=== PATIENT | female | born 1960 | race Caucasian/White ===

== ENCOUNTER 2019-06-11 11:57 | Emergency (ER) | payer OTHER ==
[2019-06-11 12:02] VITALS: BMI 27.3
--- NOTE | 2019-06-11 12:10 | PDOC ---
History of Present Illness - General Chief Complaint: Pain, Acute Stated Complaint: ABD PAIN Time Seen by Provider: 06/11/19 12:06 History Source: Patient Exam Limitations: No Limitations - History of Present Illness Initial Comments: 06/11/19 12:09 Ariadna Hillman is a 59F with no other PMH presenting with abdominal pain and intermittent chest pain. Patient reports 3 days of nausea and vomiting with dizziness. Poor PO intake, nausea, 3x NBNB vomiting today and yesterday, with epigastric abdominal pain that worsens with eating, radiates up from stomach, and is not positional. Denies diarrhea, urinary symptoms, fever/chills. Has never had any abdominal surgeries, still has GB. Denies sick contacts or spoiled food exposure. Says she is dizzy like the world is spinning around her, get dizzy like this intermittently, difficulty walking normally. Denies vision/hearing changes. Has felt this way in the past, usually she drinks a cold Coca Cola and her symptoms go away. Has been taking NyQuil with Tylenol for the last few days. Also has intermittent chest pain and SOB, last occurred last week, lasts for about 2 minutes at a time. Happens when she is sitting or when walking fast. 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 Denies any weakness, numbness/tingling, vision changes, no neck pain or severe PEDRO. NKDA No daily meds No recent alcohol use Past History - Past Medical History Allergies/Adverse Reactions: Allergies Allergy/AdvReac Type Severity Reaction Status Date / Time No Known Allergies Allergy Verified 05/02/13 10:17 Home Medications: Ambulatory Orders Famotidine [Pepcid] 20 mg PO DAILY 14 Days #14 tablet 06/11/19 COPD: No CHF: No GI Disorders: Yes (gastritis) - Immunization History Immunization Up to Date: No - Psycho Social/Smoking Cessation Hx Smoking Status: No Smoking History: Never smoked Have you smoked in the past 12 months: No Number of Cigarettes Smoked Daily: 0 Information on smoking cessation initiated: No Hx Alcohol Use: No Drug/Substance Use Hx: No Review of Systems - Review of Systems Able to Perform ROS?: Yes Constitutional: No: Chills, Fever HEENTM: No: Symptoms Reported Respiratory: No: Cough, Shortness of Breath, SOB with Exertion, SOB at Rest Cardiac (ROS): Yes: Chest Pain. No: Irregular Heart Rate, Lightheadedness, Syncope, Chest Tightness ABD/GI: Yes: Nausea, Poor Appetite, Poor Fluid Intake, Vomiting. No: Diarrhea : No: Symptoms Reported Musculoskeletal: No: Symptoms Reported Integumentary: No: Symptoms Reported Neurological: Yes: Headache, Dizziness. No: Numbness, Seizure, Tingling, Unsteady Gait Endocrine: No: Symptoms Reported Hematologic/Lymphatic: No: Symptoms Reported All Other Systems: Reviewed and Negative *Physical Exam - Vital Signs Last Vital Signs Temp Pulse Resp BP Pulse Ox 98.5 F 60 16 129/72 99 06/11/19 11:59 06/11/19 11:59 06/11/19 11:59 06/11/19 11:59 06/11/19 11:59 - Physical Exam General Appearance: Yes: Nourished, Appropriately Dressed, Obese. No: Apparent Distress HEENT: positive: EOMI, CHRISTAIN, Normal ENT Inspection, Normal Voice, Symmetrical, Pharynx Normal. negative: Scleral Icterus (R), Scleral Icterus (L), Pharyngeal Erythema, Tonsillar Exudate, Tonsillar Erythema, Hearing Decreased Neck: positive: Trachea midline, Normal Thyroid, Supple. negative: Tender, Rigid, Decreased range of motion, Tender lateral, Tender midline Respiratory/Chest: positive: Lungs Clear, Normal Breath Sounds. negative: Chest Tender, Respiratory Distress, Accessory Muscle Use, Crackles, Rales, Rhonchi, Stridor, Wheezing Cardiovascular: positive: Regular Rhythm, Regular Rate. negative: Murmur Gastrointestinal/Abdominal: positive: Normal Bowel Sounds, Tender (epigastric), Soft, Protuberent. negative: Guarding, Rebound, Tenderness Musculoskeletal: positive: Normal Inspection. negative: CVA Tenderness, Vertebral Tenderness Extremity: positive: Normal Capillary Refill, Normal Inspection, Normal Range of Motion, Pelvis Stable. negative: Tender, Pedal Edema, Swelling Integumentary: positive: Normal Color, Dry, Warm Neurologic: positive: plush finisher II-XII NML intact, Fully Oriented, Alert, Normal Mood/ Affect, Normal Response, Motor Strength 5/5, Other (no numbness/tingling, 5/5 motor strength, no CN deficits, finger/nose normal). negative: Sensory Deficit ED Treatment Course - LABORATORY CBC & Chemistry Diagram: 06/11/19 12:46 06/11/19 12:46 Medical Decision Making - Medical Decision Making 06/11/19 14:12 Patient is otherwise healthy and presents with epigastric pain, nausea, vomiting , dizziness poor PO for the last few days. Pain worsens with eating, epigastric pain radiates up throat consistent with GERD. DDx includes GB pathology, gastritis, GERD, pancreatitis, dehydration. Has also been having intermittent chest pain at rest, which is consistent with GERD but cannot rule out unstable angina. A few months ago had a head injury when pots fell on her head and she was knocked out, no neuro deficits, but still concerning given PEDRO and dizziness now, possible ICH. - CMP/CBC for infection/lytes/pancreatitis eval - CP/ECG/CXR for cardiac eval, will 2-trop given age and concerning history - lipase for pancreatitis eval - UA/UC for UTI eval - Pepcid/NS bolus/Reglan/Zofran for PEDRO/nausea relief ECG reveals sinus bradycardia with HR 44, QRS 88, QTc 398, TWI in III, inverted P in V1, no ischemic changes, no prior ECG 06/11/19 14:19 Labs notable for: - CMP WNL - CBC WNL - Coags WNL - trop negative - UA clean 06/11/19 15:[address] head no pathology Getting 2nd trop now. 06/11/19 16:25 2nd trop negative. Discussed results with patient in [place], feels better but still has some mild epigastric pain. Will discharge home with PMD, cards, GI referral. Pepcid script sent to [facility] for [facility]. Discharge - Discharge Information Problems reviewed: Yes Clinical Impression/Diagnosis: Epigastric abdominal pain Nausea & vomiting Qualifiers: Vomiting type: unspecified Vomiting Intractability: non-intractable Qualified Code(s): R11.2 - Nausea with vomiting, unspecified Condition: Stable Disposition: HOME - Admission No - Additional Discharge Information Prescriptions: Famotidine [Pepcid] 20 mg PO DAILY 14 Days #14 tablet - Follow up/Referral Referrals: [facility] [place] [Provider Group] Lazarus Ontiveros MD [Staff Physician] - Alisha Warren MD [Staff Physician] - - Patient Discharge Instructions Patient Printed Discharge Instructions: DI for Vomiting -- Adult Additional Instructions: Today you were evaluated for nausea, vomiting, and abdominal pain. Your labs and urine do not show any problems. Your X-ray and CT scan appear completely normal. We have tested your heart for possible heart attack and did not find evidence of one. Your dizziness is likely related to dehydration or a viral infection. You need to see a primary doctor in the next week for follow-up, and we have given you a referral. We also recommend you see a heart doctor and a supervisor press room for what is likely gastric reflux causing your burning pain. We have sent a prescription for Pepcid for you to take that will help with upset stomach acid. Avoid eating food at night and avoid foods high in fat. If you experience worsening pain, nausea, vomiting, have fever, or any other new or concerning symptoms, please return to the emergency room. Hoy fue evaluado por nuseas, vmitos y dolor abdominal. Princess laboratorios y orina no muestran ningn problema. Oakley radiografa y tomografa computarizada parecen completamente normales. Hemos probado oakley corazn para detectar un posible ataque cardaco y no encontramos evidencia de jose miguel. Oakley mareo probablemente est relacionado con la deshidratacin o samm infeccin viral. Debe consultar a un mdico de atencin primaria en la prxima semana para el seguimiento, y le hemos derivado. David luna recomendamos que consulte a un mdico del corazn y a un gastroenterlogo por lo que probablemente sea el reflujo gstrico que causa oakley ardor. Hemos enviado samm receta de Pepcid para que la tome, lo que ayudar con el malestar estomacal cido. Evite comer alimentos por la noche y evite los alimentos con alto contenido de grasa. Si experimenta un empeoramiento del dolor, nuseas, vmitos, fiebre o cualquier otro sntoma nuevo o preocupante, regrese a la juanis de emergencias. Print Language: SAMI - Post Discharge Activity
[2019-06-11] MEDS ORDERED: ONDANSETRON 4 MG/2 ML VIAL IVPUSH ONE (12:43)
[2019-06-11] MEDS ORDERED: FAMOTIDINE 20 MG/50 ML IVPB 20 MG/50 ML MG IVPB ONE ×2 (12:44→12:50)
[2019-06-11] MEDS ORDERED: ONDANSETRON 4 MG/2 ML VIAL ONE (12:45)
[2019-06-11] MEDS ORDERED: SODIUM CHLORIDE 0.9% 500 ML INFUS.BAG IV ONE (12:50)
[2019-06-11] MEDS ORDERED: METOCLOPRAMIDE HCL INJECTION 10 MG/2 ML VIAL IVPB ONE (12:51)
[2019-06-11 13:00] LABS: BASO % 0.4 % (0-2.0); EOS % 2.5 % (0-4.5); HEMATOCRIT 40.4 % (32.4-45.2); HEMOGLOBIN 13.6 GM/dL (10.7-15.3); LYMPH % 32.8 % (8-40); MCH 29.8 pg (25.7-33.7); MCHC 33.6 g/dl (32.0-36.0); MEAN CELL VOLUME 88.5 fl (80-96); MEAN PLT VOLUME 9.1 fl (7.5-11.1); MONO % 7.1 % (3.8-10.2); NEUT % 57.2 % (42.8-82.8); PLATELET COUNT 328 K/MM3 (134-434); RBC 4.56 M/mm3 (3.60-5.2); RDW 14.1 % (11.6-15.6); WHITE BLOOD COUNT 5.1 K/mm3 (4.0-10.0)
[2019-06-11 13:13] LABS: INR 1.03 (0.83-1.09); PROTHROMBIN TIME (PATIENT) 12.2 SEC (9.7-13.0)
[2019-06-11 13:16] LABS: ACTIVATED PTT 38.4 SECONDS (25.2-36.5)
[2019-06-11] MEDS ORDERED: METOCLOPRAMIDE HCL INJECTION 10 MG/2 ML VIAL ONE (13:21)
[2019-06-11 13:42] LABS: ALBUMIN 3.8 g/dl (3.4-5.0); BILIRUBIN,TOTAL 0.3 mg/dL (0.2-1); BLOOD UREA NITROGEN 10.9 mg/dL (7-18); CALCIUM 9.5 mg/dL (8.5-10.1); CREATININE 0.7 mg/dL (0.55-1.3); MAGNESIUM 2.4 mg/dL (1.8-2.4); POTASSIUM 4.4 mmol/L (3.5-5.1); TOT PROT 7.5 g/dl (6.4-8.2)
--- NOTE | 2019-06-11 13:43 | PDOC ---
Documentation entered by Wandy Velázquez SCRIBE, acting as scribe for Courtney Sampson DO. Courtney Sampson DO: This documentation has been prepared by the Melania mora Nirvannie, SCRIBE, under my direction and personally reviewed by me in its entirety. I confirm that the documentation accurately reflects all work, treatment, procedures, and medical decision making performed by me. Attending Attestation - Resident Resident Name: Gustavo Webber - ED Attending Attestation I have performed the following: I have examined & evaluated the patient, The case was reviewed & discussed with the resident, I agree w/resident's findings & plan, Exceptions are as noted - HPI HPI: 06/11/19 13:06 The patient is a 59 year old female, with a significant past medical history of HLD, DM, who presents to the emergency department with 3 days of diffuse abdominal pain, nausea with NBNB emesis, and nonbloody diarrhea. Patient describes her abdominal pain as diffuse worsened in the epigastric. She notes intermittent chest discomfort described as a burning sensation radiating upwards with a metallic sensation in the back of his throat. Patient notes a few months ago multiple pots and pans fell onto her head while washing dishes. She denies any fevers, chills, focal changes in strength/sensation, diaphoresis , palpitations, or cough. Allergies: NKDA - Physicial Exam PE: 06/11/19 13:29 Constitutional: Awake, alert, oriented. No acute distress. Head: Normocephalic. Atraumatic Eyes: PERRL. EOMI. Conjunctivae are not pale. ENT: Mucous membranes are moist and intact. Posterior pharynx without exudates or erythema. Uvula midline. Neck: Supple. Full ROM. No lymphadenopathy. Cardiovascular: Regular rate. Regular rhythm. S1, S2 regular. Distal pulses are 2+ and symmetric. Pulmonary/Chest: No evidence of respiratory distress. Clear to auscultation bilaterally No wheezing, rales or rhonchi. Abdominal: +Epigastric tenderness. No RUQ tenderness. No rebound, guarding or rigidity. Soft and non-distended. No organomegaly. No palpable masses. Good bowel sounds. Back: No CVA tenderness. Musculoskeletal: No edema. No cyanosis. No clubbing. Full range of motion in all extremities. No calf tenderness. Radial/pedal pulses are intact and 2+ bilaterally Skin: Skin is warm and dry. No petechiae. No purpura. Neurological: Alert and oriented to person, place, and time. Cranial nerves II -XII are grossly intact. Normal speech. Strength is grossly symmetric. No sensory deficits. Psychiatric: Good eye contact. Normal interaction, affect and behavior. - Medical Decision Making 06/11/19 13:39 a/p: 59yo female with epigastric pain, assoc wit n/v and burning sensation in her chest. Has also had cp/sob pressure over the last few weeks -pt c/o epigastric pain currently -no diarrhea -has had n/v -c/o feeling lightheaded and dizzy -will send labs, ekg, head ct -allyson give ivf hydration, reglan, pepcid -will monitor and reassess 06/11/19 13:43 cbc reviewed 06/11/19 13:46 pt ambulatory in the ER with a steady gait 06/11/19 14:10 labs reviewed and stable ua neg 06/11/19 15:[address] neg repeat trop pending when trop neg dc to home with PMD follow up, gi follow up and cards follow up 06/11/19 16:20 trop neg 06/11/19 16:24 pt feels better repeat trop neg stable for dc to home discussed need for follow up Heart Score/ECG Review - ECG Intrepretation Comment:: 06/11/19 14:09 sinus at 44, t wave inversions III, which are nonspecific, no acute st changes
[2019-06-11 14:08] LABS: URINE APPEARANCE CLEAR; URINE BILIRUBIN NEGATIVE (NEGATIVE); URINE COLOR YELLOW; URINE GLUCOSE (UA) NEGATIVE (NEGATIVE); URINE KETONE NEGATIVE (NEGATIVE); URINE LEUK ESTERASE NEGATIVE (NEGATIVE); URINE NITRITE NEGATIVE (NEGATIVE); URINE PROTEIN NEGATIVE (NEGATIVE); URINE UROBILINOGEN 0.2 mg/dL (0.2-1.0)
[2019-06-11 15:49] VITALS: BP 122/77; PULSE 46; TEMP 98.2
[2019-06-11] MEDS ORDERED: MAG HYDROX/AL HYDROX/SIMETH 30 ML UNIT-DOSE CUP PO ONE (16:24)
[2019-06-11] MEDS ORDERED: MAG HYDROX/AL HYDROX/SIMETH 30 ML UNIT-DOSE CUP ONE (16:28)
--- NOTE | 2019-06-12 12:36 | EKG ---
Test Reason : Blood Pressure : / mmHG Vent. Rate : 044 BPM Atrial Rate : 044 BPM P-R Int : 146 ms QRS Dur : 088 ms QT Int : 466 ms P-R-T Axes : 054 -09 008 degrees QTc Int : 398 ms MARKED SINUS BRADYCARDIA MODERATE VOLTAGE CRITERIA FOR LVH, MAY BE NORMAL VARIANT INCOMPLETE RBBB ABNORMAL ECG WHEN COMPARED WITH ECG OF 28-FEB-2013 11:05, NONSPECIFIC T WAVE ABNORMALITY NOW EVIDENT IN ANTERIOR LEADS Confirmed by SHAY RUBIO MD ([id number]) on 06/12/2019 12:36:05 PM Referred By: Confirmed By:SHAY RUBIO MD
== END 2019-06-11 16:30 | disposition home or self-care (01) ==
LOC: JER 11:57
PROC: 3E033GC Introduction of Other Therapeutic Substance into Peripheral Vein, Percutaneous Approach (ICD-10-PCS; principal; 2019-06-11)
PROC: 3E033GC Introduction of Other Therapeutic Substance into Peripheral Vein, Percutaneous Approach (ICD-10-PCS; 2019-06-11)
PROC: 3E033GC Introduction of Other Therapeutic Substance into Peripheral Vein, Percutaneous Approach (ICD-10-PCS; 2019-06-11)
DX: R10.13 Epigastric pain (principal); E11.9 Type 2 diabetes mellitus without complications; E78.5 Hyperlipidemia, unspecified
CPT/HCPCS: 36415; 70450-TC; 71046-TC-FY; 80053; 81003; 82550; 83690; 83735; 84484; 85025; 85610; 85730; 93005; 93010; 96365; 96375; 99283-25